=== PATIENT | male | born 1935 | race Caucasian/White ===

== ENCOUNTER → 2016-04-19 | Outpatient (CLI) | payer MEDICARE, BC | LOC: RAD 12:14 | PROVIDERS: ATTEND Family Medicine | DX: H53.123 Transient visual loss, bilateral (principal) | CPT/HCPCS: 70553; 93880; A9579 ==

== ENCOUNTER → 2016-04-28 | Outpatient (CLI) | payer MEDICARE, BC | LOC: RAD 10:08 | PROVIDERS: ATTEND Family Medicine | DX: H53.123 Transient visual loss, bilateral (principal) | CPT/HCPCS: 70496; 70498; Q9967 ==